=== PATIENT | female | born 1970 | race African-American/Black ===

== ENCOUNTER 2018-05-26 18:30 | Emergency (ER) | payer OTHER ==
[~2018-05-26] VITALS: Ht 152.4 cm; Wt 65.8 kg
[~2018-05-26 18:30] MED LIST: MUCINEX600 MG PO; POLYSPORIN OINT15 GM TP; PREDNISONE 20 M20 MG PO; REGLAN 10 MG TA10 MG PO; TUSSIONEX PENN473 ML PO; VENTOLIN HFA INH8 GM IH; ZANTAC 150MG T150 MG PO; ZPAK PO
[2018-05-26 18:38] VITALS: BP 134/45
[2018-05-26] MEDS ORDERED: NORFLEX100 MG PO (18:58)
[2018-05-26] MEDS ORDERED: NAPROSYN500 MG PO (18:58)
== END 2018-05-26 19:11 | disposition home or self-care (01) ==
LOC: ER 18:30
DX: S16.1XXA Strain of muscle, fascia and tendon at neck level, initial encounter (principal); V89.2XXA Person injured in unspecified motor-vehicle accident, traffic, initial encounter; Y93.I9 Activity, other involving external motion; Y92.410 Unspecified street and highway as the place of occurrence of the external cause; Y99.8 Other external cause status

== ENCOUNTER → 2020-01-07 | Outpatient (CLI) | payer OTHER ==
[~2020-01-07] MED LIST changes: +NAPROSYN500 MG PO; +NORFLEX100 MG PO
== END ==
LOC: CAT 06:48
PROVIDERS: ATTEND Neuromusculoskeletal Medicine & OMM
DX: R14.0 Abdominal distension (gaseous) (principal)

== ENCOUNTER → 2021-04-02 | Outpatient (CLI) | payer OTHER | LOC: CAT 09:26 | PROVIDERS: ATTEND Nurse Practitioner | DX: Z13.6 Encounter for screening for cardiovascular disorders (principal) ==